=== PATIENT | male | born 1950 | race Caucasian/White ===

== ENCOUNTER 2022-01-18 08:34 | Outpatient (CLI) | payer MEDICARE, SELFPAY ==
[2022-01-18 13:45] LABS: Chloride* 105 mmol/L (96-114)
[2022-01-18 13:46] LABS: Albumin* 4.2 g/dL (3.3-5.0); Sodium* 138 mmol/L (135-149)
[2022-01-18 13:47] LABS: Potassium* 4.7 mmol/L (3.6-5.1)
[2022-01-18 13:49] LABS: Alkaline Phosphatase* 65 U/L (40-150); Aspartate Amino Transferase* 26 U/L (12-35); Blood Urea Nitrogen* 16 mg/dL (7-30); Carbon Dioxide* 26 mmol/L (20-32); Cholesterol* 89 mg/dL (90-199); Estimated Glomerular Filt Rate 81 ml/min; Glucose* 125 mg/dL (60-115); Total Protein* 6.8 g/dL (6.0-8.3)
[2022-01-18 13:50] LABS: Alanine Aminotransferase* 15 U/L (4-50); Calcium* 8.7 mg/dL (8.4-10.6); HDL Cholesterol* 32 mg/dL (>=40); LDL Cholesterol Calculated 24 mg/dL (<100); Triglycerides* 163 mg/dL (40-149)
[2022-01-18 14:19] LABS: PSA Screen* 0.84 ng/mL (0.10-4.00)
== END 2022-01-18 08:35 | disposition home or self-care (01) ==
PROVIDERS: PCP Family Medicine; Visit Provider Physician Assistant Medical
DX: Z00.00 Encounter for general adult medical examination without abnormal findings (principal); E78.5 Hyperlipidemia, unspecified; I10 Essential (primary) hypertension; Z12.5 Encounter for screening for malignant neoplasm of prostate
CPT/HCPCS: 80053; 80061; 84153

== ENCOUNTER 2023-01-25 08:59 | Outpatient (CLI) | payer MEDICARE, SELFPAY | END 2023-01-25 09:00 | disposition home or self-care (01) | LOC: NFLDREF 01-26 07:48 | PROVIDERS: PCP Family Medicine; Referring Provider Family Medicine; Visit Provider Family Medicine | DX: Z00.00 Encounter for general adult medical examination without abnormal findings (principal); E78.5 Hyperlipidemia, unspecified; I10 Essential (primary) hypertension; R73.03 Prediabetes; R41.3 Other amnesia; Z79.01 Long term (current) use of anticoagulants | CPT/HCPCS: 80053; 80061; 84153 ==

== ENCOUNTER 2023-01-27 10:28 | Outpatient (CLI) | payer MEDICARE, SELFPAY ==
[2023-01-27 13:14] LABS: Vitamin B12* 764 pg/mL (243-894)
== END 2023-01-27 10:29 | disposition home or self-care (01) ==
PROVIDERS: PCP Family Medicine; Visit Provider Family Medicine
DX: Z00.00 Encounter for general adult medical examination without abnormal findings (principal); R41.3 Other amnesia; R73.03 Prediabetes; E78.5 Hyperlipidemia, unspecified; I10 Essential (primary) hypertension; Z79.01 Long term (current) use of anticoagulants; Z13.29 Encounter for screening for other suspected endocrine disorder
CPT/HCPCS: 82607; 84443

== ENCOUNTER 2023-03-30 08:12 | Outpatient (CLI) | payer MEDICARE, SELFPAY ==
[2023-03-30] MEDS: SODIUM CHLORIDE 0.9 % (FLUSH) 10 ML SYRINGE IVF (11:20)
[2023-03-30] MEDS: REGADENOSON 0.4 MG/5 ML SYRINGE IVP (11:20)
[2023-03-30 11:35] VITALS: BP 127/66; PULSE 87
--- NOTE | 2023-03-30 14:07 | W.PM.STED ---
Stress Test Note Date Date Seen: 03/30/23 Date of test: 03/30/23 Providers Primary care provider: Uvaldo Zhu Stress test physician: Summer Richard Stress Test Note Stress test ordered: Lexiscan Indication for test: Peripheral vascular disease, coronary artery disease history. Stress test medicine: Lexiscan Results discussion: Resting EKG: Sinus bradycardia with some artifact, 2 EKGs 1 demonstrating 57 beats per minute, other sinus rhythm at 63 beats per minute. No acute ischemic change. Resting blood pressure: 146/80 Stress test: Patient performed a walking Lexiscan. Had some lightheadedness with infusion of the regadenoson. He had no chest symptoms. Did note some flattening T-waves in lead [address] segment changes, no definitive EKG changes of any ischemia. He had a maximum blood pressure 160/70. No EKG evidence of ischemia. Await nuclear images to couple this test for full formal diagnostic. Impression: Subjectively negative, objectively negative EKG portion of this stress test. Follow up suggested: Patient is discharged from a stress test in stable condition, will get post stress images and we will await these for full formal diagnostic test results. He should hear from his primary ordering once the test results are back.
== END 2023-03-30 08:13 | disposition home or self-care (01) ==
LOC: STRESS 08:12
PROVIDERS: PCP Family Medicine; Visit Provider Family Medicine
DX: I73.9 Peripheral vascular disease, unspecified (principal)
CPT/HCPCS: 78452; 93016; 93017; A9500; J2785

== ENCOUNTER 2024-02-01 10:38 | Outpatient (CLI) | payer MEDICARE, SELFPAY | END 2024-02-01 10:39 | disposition home or self-care (01) | LOC: NFLDREF 02-06 08:38 | PROVIDERS: PCP Family Medicine; Referring Provider Family Medicine; Visit Provider Family Medicine | DX: I10 Essential (primary) hypertension (principal); E78.5 Hyperlipidemia, unspecified; R73.03 Prediabetes; Z12.5 Encounter for screening for malignant neoplasm of prostate | CPT/HCPCS: 80053; 80061; G0103 ==

== ENCOUNTER 2024-02-14 08:01 | Outpatient (CLI) | payer MEDICARE, SELFPAY ==
--- NOTE | 2024-02-14 08:15 | CRLHL7_ITS ---
For Patients: As a result of the Cures Act, medical imaging exams and procedure reports are released immediately into your electronic medical record. You may view this report before your referring provider. If you have questions, please contact your health care provider. Examination: US abdominal aorta Indication: history of aorta bifemoral bypass. Abdominal aortic aneurysm screening. Technique: Zhao scale and color Doppler images of the aorta and common iliac arteries are obtained. Comparison: None Findings: Proximal aorta: 2.6 x 2.5 cm Mid aorta: 2.4 x 1.9 cm Distal aorta: 1.8 x 1.8 cm Right common iliac artery: 0.7 x 0.8 cm Left common iliac artery: 0.8 x 1.1 cm Impression: No abdominal aortic aneurysm. Dictated by Codey Torres MD @ 02/14/2024 10:33:13 AM (Electronically Signed)
--- NOTE | 2024-02-14 09:15 | CRLHL7_ITS ---
For Patients: As a result of the Century Cures Act, medical imaging exams and procedure reports are released immediately into your electronic medical record. You may view this report before your referring provider. If you have questions, please contact your health care provider. CLINICAL HISTORY: memory loss, atherosclerosis TECHNIQUE: The carotid circulations and the vertebral arteries in the neck were examined with menjivar-scale ultrasound, color-flow and Doppler spectral analysis. Degrees of stenosis were determined using SRU 2002 Consensus Panel Criteria. FINDINGS: Sonographic images demonstrate bilateral atherosclerotic plaque formation without suspicious soft tissue mass. There was antegrade blood flow demonstrated within the vertebral arteries and the subclavian arteries demonstrated a normal triphasic waveform. The spectral Doppler tracings of the common carotid, internal and external carotid arteries demonstrate no abnormal turbulence or spectral broadening. There was no significant elevation of peak systolic blood flow which would indicate a hemodynamically-significant stenosis by SRU criteria. The ICA/CCA peak systolic velocity ratio measures 1.3 on the right and 1.7 on the left. IMPRESSION: Less than 50 percent stenosis of the internal carotid arteries bilaterally. Dictated by Codey Torres MD @ 02/14/2024 10:34:40 AM (Electronically Signed)
== END 2024-02-14 08:02 | disposition home or self-care (01) ==
LOC: US 08:02
PROVIDERS: PCP Family Medicine; Visit Provider Family Medicine
DX: I70.0 Atherosclerosis of aorta (principal); I65.23 Occlusion and stenosis of bilateral carotid arteries; R41.3 Other amnesia; D45 Polycythemia vera; I73.9 Peripheral vascular disease, unspecified; Z79.01 Long term (current) use of anticoagulants; Z13.6 Encounter for screening for cardiovascular disorders
CPT/HCPCS: 76775; 93880

== ENCOUNTER 2024-03-04 13:22 | Outpatient (CLI) | payer MEDICARE, SELFPAY | END 2024-03-04 13:23 | disposition home or self-care (01) | LOC: US 13:22 | PROVIDERS: PCP Family Medicine; Visit Provider Family Medicine | DX: I73.9 Peripheral vascular disease, unspecified (principal); G62.9 Polyneuropathy, unspecified; Z79.01 Long term (current) use of anticoagulants | CPT/HCPCS: 93922 ==

== ENCOUNTER 2024-07-17 08:50 | Outpatient (CLI) | payer MEDICARE, SELFPAY ==
[2024-07-17 13:48] LABS: Hemoglobin A1C* 4.7 % (0-5.6)
[2024-07-17 14:31] LABS: Erythrocyte SedimentationRate* 2 mm/hr (2-15)
[2024-07-17 14:49] LABS: Uric Acid* 6.9 mg/dL (2.2-8.4)
[2024-07-17 15:02] LABS: C Reactive Protein* < 0.5 mg/dL (0.5-1.0)
[2024-07-17 16:13] LABS: Vitamin B12* 743 pg/mL (243-894)
[2024-07-18 17:23] LABS: Folate, Serum 6.8 ng/mL (>=5.9)
[2024-07-18 20:38] LABS: Rheumatoid Factor <10 IU/mL (0-14)
[2024-07-19 00:41] LABS: Anti-Nuclear Ab(ANA)IgG ELISA None Detected (None Detected)
[2024-07-19 15:15] LABS: SSA-60 (Ro60) (ENA) IgG 1 AU/mL (0-40); SSA52 (Ro52) (ENA) IgG 3 AU/mL (0-40)
[2024-07-19 19:38] LABS: Vitamin B6 (Pyridoxal 5-Phos) 16.7 nmol/L (20.0-125.0)
== END 2024-07-17 08:51 | disposition home or self-care (01) ==
PROVIDERS: PCP Family Medicine; Visit Provider Psychiatry & Neurology Neurology
DX: G62.9 Polyneuropathy, unspecified (principal); R20.2 Paresthesia of skin; M79.2 Neuralgia and neuritis, unspecified; R27.9 Unspecified lack of coordination; M79.674 Pain in right toe(s); M79.675 Pain in left toe(s)
CPT/HCPCS: 82607; 82746; 83001; 83036; 84207; 84443; 84550; 85651; 86038; 86140; 86235; 86334; 86431

== ENCOUNTER 2024-09-26 08:45 | Outpatient (CLI) | payer MEDICARE, SELFPAY | END 2024-09-26 08:46 | disposition home or self-care (01) | LOC: NFLDREF 09-29 08:28 | PROVIDERS: PCP Family Medicine; Referring Provider Family Medicine; Visit Provider Family Medicine | DX: R79.89 Other specified abnormal findings of blood chemistry (principal); G62.9 Polyneuropathy, unspecified; E78.5 Hyperlipidemia, unspecified; R53.83 Other fatigue | CPT/HCPCS: 80076; 83001; 83002; 84270; 84402; 84403 ==

== ENCOUNTER 2025-01-31 08:20 | Outpatient (CLI) | payer MEDICARE, SELFPAY | END 2025-01-31 08:21 | disposition home or self-care (01) | LOC: NFLDREF 02-05 13:00 | PROVIDERS: PCP Family Medicine; Referring Provider Family Medicine; Visit Provider Family Medicine | DX: I10 Essential (primary) hypertension (principal); E78.5 Hyperlipidemia, unspecified; I25.10 Atherosclerotic heart disease of native coronary artery without angina pectoris; R79.89 Other specified abnormal findings of blood chemistry; R41.3 Other amnesia; Z13.1 Encounter for screening for diabetes mellitus; Z12.5 Encounter for screening for malignant neoplasm of prostate | CPT/HCPCS: 80053; 80061; 82607; 83540; 83550; 84270; 84402; 84403; 84443; G0103 ==

== ENCOUNTER 2025-06-25 10:56 | Outpatient (CLI) | payer MEDICARE, SELFPAY ==
[2025-06-25 11:36] LABS: PCR FLU A POSITIVE PCR FLU A (Negative); PCR FLU B Negative PCR FLU B (Negative); SARS PCR* Negative SARS-CoV-2 (Negative)
== END 2025-06-25 10:57 | disposition home or self-care (01) ==
PROVIDERS: PCP Family Medicine
DX: R50.9 Fever, unspecified (principal)
CPT/HCPCS: 87636